=== PATIENT | female | born 1955 | race American Indian/Alaskan Native ===

== ENCOUNTER 2017-12-26 12:08 | Outpatient (CLI) | payer BC ==
--- NOTE | 2017-12-26 16:54 | XRay Report ---
FINAL REPORT EXAM: XR KNEE 4+V LT HISTORY: LEFT KNEE PAIN TECHNIQUE: Four views left knee Comparison: None FINDINGS: Tricompartmental osteoarthritic degenerative change with femoral condylar squaring, tibial spine blunting, and patellofemoral degenerative osteophytic formation. Patellar superior and inferior pole enthesophytes. No suprapatellar bursal effusion. IMPRESSION: Moderate tricompartmental osteoarthritis.
== END 2017-12-26 12:09 | disposition home or self-care (01) ==
LOC: SPVIMAG 12:08
PROVIDERS: ATTEND Orthopaedic Surgery
DX: M17.12 Unilateral primary osteoarthritis, left knee (principal); M76.892 Other specified enthesopathies of left lower limb, excluding foot